=== PATIENT | female | born 1995 | race Caucasian/White ===

== ENCOUNTER → 2017-05-29 02:07 | Observation (INO) ==
[2017-05-29 01:01] LABS: Bilirubin,Urine Negative (Negative); Blood,Urine Negative (Negative); Clarity,Urine Cloudy (Clear); Color,Urine Yellow (Yellow); Glucose,Urine (UA) Normal (Normal); Ketones,Urine Trace mg/dL (Negative); Leukocyte Esterase,Urine Large (Negative); Nitrite,Urine Negative (Negative); Protein,Urine Trace mg/dL (Neg-Trace); Specific Gravity,Urine 1.022 (1.010-1.025); Urobilinogen,Urine Normal (Normal)
[2017-05-29 01:03] LABS: Bacteria,Urine Moderate per hpf (None-Few); Hyaline Casts,Urine Moderate per lpf (None-Few); Squamous Epithelial Cell,Urine Many per lpf (None-Few); WBC,Urine TNTC per hpf (0-3)
[2017-05-29 01:07] LABS: Amphetamine Screen,Urine Negative ng/mL (Cutoff=1000); Barbiturate Screen,Urine Negative ng/mL (Cutoff=200); Benzodiazepines Screen,Urine Negative ng/mL (Cutoff=200); Cannabinoid Screen,Urine Negative ng/mL (Cutoff = 50); Cocaine Screen,Urine Negative ng/mL (Cutoff= 300); Opiate Screen,Urine Negative ng/mL (Cutoff=300); Phencyclidine Screen,Urine Negative ng/mL (Cutoff=25)
[2017-05-29 01:16] LABS: Mucus,Urine Moderate (Few); RBC,Urine 0-3 per hpf (0-3)
--- NOTE | 2017-05-29 02:08 | Discharge Summary ---
Date of Encounter: 05/29/17 Time of Encounter: 02:06 - Discharge Diagnosis (1) 35 weeks gestation of Priority: Primary Status: Acute Comments: admitted for observation (2) False labor before 37 completed weeks of gestation Priority: Secondary Status: Acute Comments: no cervical change after 1 hour of observation Patient to be discharged Patient to follow up with OB provider Qualifiers: Trimester: third trimester Qualified Code(s): O47.03 - False labor before 37 completed weeks of gestation, third trimester - Discharge Medications Home Medications: [id number]/Dha/Fish Oil [ Gummies] 1 each PO DAILY 02/21/17 [ History] Ferrous Sulfate [Iron] 2 tab PO DAILY 05/29/17 [History] Allergies/Adverse Reactions: 3 Allergy/AdvReac Type Severity Reaction Status Date / Time No Known Allergies Allergy Verified 02/21/17 05:35 Data Procedures and tests throughout hospitalization: Laboratory Tests 05/29/17 05/29/17 00:45 00:45 Urine Color Yellow Urine Clarity Cloudy A Urine pH 6.0 Ur Specific [place] 1.022 Urine Protein Trace Urine Glucose (UA) Normal Urine Ketones Trace H Urine Blood Negative Urine Nitrite Negative Urine Bilirubin Negative Urine Urobilinogen Normal Ur Leukocyte Esterase Large H Urine Microscopic RBC 0-3 Urine Microscopic WBC TNTC H Ur Squamous Epith Cells Many H Urine Bacteria Moderate H Hyaline Casts Moderate H Urine Mucus Moderate H Ur Culture Indicated? YES A Urine Opiates Screen Negative Ur Barbiturates Screen Negative Ur Phencyclidine Scrn Negative Ur Amphetamines Screen Negative U Benzodiazepines Scrn Negative Urine Cocaine Screen Negative U Marijuana (THC) Screen Negative Labs on day of discharge: Labs from last 24 hours 05/29/17 05/29/17 00:45 00:45 Urine Color Yellow Urine Clarity Cloudy A Urine pH 6.0 Ur Specific [place] 1.022 Urine Protein Trace Urine Glucose (UA) Normal Urine Ketones Trace H Urine Blood Negative Urine Nitrite Negative Urine Bilirubin Negative Urine Urobilinogen Normal Ur Leukocyte Esterase Large H Urine Microscopic RBC 0-3 Urine Microscopic WBC TNTC H Ur Squamous Epith Cells Many H Urine Bacteria Moderate H Hyaline Casts Moderate H Urine Mucus Moderate H Ur Culture Indicated? YES A Urine Opiates Screen Negative Ur Barbiturates Screen Negative Ur Phencyclidine Scrn Negative Ur Amphetamines Screen Negative U Benzodiazepines Scrn Negative Urine Cocaine Screen Negative U Marijuana (THC) Screen Negative Date of admission: 05/29/17 00:24 Discharging clinician: Fallon Miner Anticipated date of discharge: 05/29/17 - Patient Status Disposition: Home, Self-Care Condition: Good - Discharge Instructions Additional Instructions: LABOR AND DELIVERY DISCHARGE INSTRUCTIONS Signs and Symptoms to be Reported to your Doctor Immediately: * Sudden gush, continuous or intermittent lead of fluid from vagina (note the time of gush and color of fluid) * Onset of bright red vaginal bleeding with or without pain (if you had a vaginal exam during this visit you may notice some dark red spotting. This is normal.) * Lower abdominal cramping or backache that is premenstrual-like feeling. * More than 6 contractions in one hour. * Burning during urination, having to urinate more frequently or pain in your mid-back. * A change in the baby's activity. This could be an increase or decrease in activity. * Severe headache which does not go away with tylenol. * Sudden swelling in the face, hands, arms and/or legs. * Upper abdominal pain - sometimes associated with heartburn or nausea and is not relieved by Maalox, Mylanta or Tums. * Dizziness or blurred vision or visual disturbances (seeing stars/lights). * Kick Counts One hour after a meal, lay down on one side in a quiet place. Count the number of paras the baby moves during an hour. If less than 6 movements, notify your physician. Diet: *Force fluids - 8-10 tall glasses of fluid per day. May include popsicles and jello. *Limit caffeine - this includes chocolate, coffee, tea, any soft drink containing such as all cassandra, Roberth Yellow and Mountain Dew Hospital Course [employer]IAN Time Attestation: Total time spent providing and/or coordinating discharge services: Time Spent: Less than 30 minutes Exam - Other Additional findings: Patient seen and assessed by RN - VTE Reasons for not Prescribing Prophylaxis: Treatment not Indicated - Low risk for VTE
== END | disposition home or self-care (01) ==
LOC: 1NENULAB
PROVIDERS: ADMIT Advanced Practice Midwife; ATTEND Advanced Practice Midwife